=== PATIENT | female | born 1960 | race Caucasian/White ===

== ENCOUNTER 2019-09-10 18:56 | Emergency (ER) | payer OTHER ==
[~2019-09-10] VITALS: Ht 162.6 cm; Wt 77.1 kg
--- OUTSIDE RECORDS SUMMARY | ~2019-09-10 | XMS | Clinical Summary ---
Demographics + + + | Address | [address] | | | [place] [address] | + + + | Home Phone | | + + + | Preferred Language | Unknown | + + + | Marital Status | | + + + | Latter-Day Affiliation | 1038 | + + + | Race | Unknown | + + + | Ethnic Group | Unknown | + + + Author + + + | Author | [facility] | | | and Rastaana | + + + | Organization | [facility] | | | and Rastaana | + + + | Address | Unknown | + + + | Phone | Unavailable | + + + Support + + +---------+ + | Name | Relationship | Address | Phone | + + +---------+ + | LU BLEDSOE | ECON | Unknown | | + + +---------+ + Care Team Providers + +------+ + | Care Sugar Cane Grower Name | Role | Phone | + +------+ + PCP | Unavailable | + +------+ + Allergies Not on File Medications Not on file Active Problems Not on file Social History + +-------+ +--------+------+ | Tobacco Use | Types | Packs/Day | Years | Date | | | | | Used | | + +-------+ +--------+------+ | Never Assessed | | | | | + +-------+ +--------+------+ + + + | Sex Assigned at | Date Recorded | | | | + + + | Not on file | | + + + + + + + | Job Start Date | Occupation | Industry | + + + + | Not on file | Not on file | Not on file | + + + + + + + + | Travel History | Travel Start | Travel End | + + + + + + | No recent travel history available. | + + Last Filed Vital Signs Not on file Plan of Treatment + + + + + | Health Maintenance | Due Date | Last Done | Comments | + + + + + | Vaccine: | | | | | Dtap/Tdap/Td (1 - | 0 | | | | Tdap) | | | | + + + + + | Cervical Cancer | | | | | Screening (Pap) | 1 | | | + + + + + | Vaccine: Zoster (1 | | | | | of 2) | 1 | | | + + + + + | Breast Cancer | | | | | Screening | 6 | | | + + + + + | Vaccine: Influenza | | | | | (#1) | 9 | | | + + + + + Results Not on filefrom Last 3 Months"
--- OUTSIDE RECORDS SUMMARY | ~2019-09-10 | XMS | Clinical Summary ---
Demographics + + + | Address | [address] | | | [place] [address] | + + + | Home Phone | | + + + | Preferred Language | Unknown | + + + | Marital Status | Single | + + + | Yarsani Affiliation | NON | + + + | Race | White | + + + | Ethnic Group | Unknown | + + + Author + + + | Organization | Unknown | + + + | Address | Unknown | + + + | Phone | Unavailable | + + + Care Team Providers + +------+ + | Care Seam Sewer Name | Role | Phone | + +------+ + PCP | Unavailable | + +------+ + Source Comments GLORIA is fully live on both [facility] Allergies Not on File Medications Not on [...] | + + + + + | Influenza (Flu) | | | | | vaccination (#1) | 9 | | | + + + + + | Pneumococcal | Aged Out | | No longer eligible | | vaccination | | | based on patient's | | | | | age to complete this | | | | | topic | + + + + + Results Not on filefrom Last 3 Months"
--- OUTSIDE RECORDS SUMMARY | ~2019-09-10 | XMS | Clinical Summary ---
Demographics + + + | Address | [address] | | | [place] [address] | + + + | Home Phone | | + + + | Preferred Language | Unknown | + + + | Marital Status | | + + + | Anabaptist Affiliation | 1038 | + + + | Race | Unknown | + + + | Ethnic Group | Unknown | + + + Author + + + | Author | [facility] | | | and Rastaana | + + + | Organization | [facility] | | | and Rastaana | [...] Team Providers + +------+ + | Care Wallpaper Cleaner Name | Role | Phone | + [...]
--- OUTSIDE RECORDS SUMMARY | ~2019-09-10 | XMS | Encounter Summary ---
Demographics + + + | Address | [address] | | | [place] [address] | + + + | Home Phone | | + + + | Preferred Language | Unknown | + + + | Marital Status | Single | + + + | Baptist Affiliation | NON | + + + | Race | White | + + + | Ethnic Group | Unknown | + + + Author + + + | Author | [facility] | + + + | Organization | [facility] | + + + | Address | Unknown | + + + | Phone | Unavailable | + + + Care Team Providers + +------+ + | Care Bumper Operator Name | Role | Phone | + +------+ + PCP | Unavailable | + +------+ + Encounter Details +--------+ + + + + | Date | Type | Department | Care Team | Description | +--------+ + + + + | 03/17/ | Results | NON[facility] | Dillon Pan, | | | 2008 | Only | Department | MD [address] | | | | | [place] | | | | | | [address] | | | | | | [phone] | | | | | | | | +--------+ + + + + Social History + +-------+ +--------+------+ | Tobacco [...] recent travel history available. | + + documented as of this encounter Plan of Treatment Not on filedocumented as of this encounter Procedures + +--------+ + + + | Procedure Name | Priori | Date/Time | Associated Diagnosis | Comments | | | ty | | | | + +--------+ + + + | CHEST 2 VIEW [id number] | Routin | 03/17/2009 | | Results for this | | | e | 8:57 PM | | procedure are in the | | | | PDT | | results section. | + +--------+ + + + | CBC W/DIFF, REFLEX | Routin | 03/17/2009 | | Results for this | | | e | 7:52 PM | | procedure are in the | | | | PDT | | results section. | + +--------+ + + + | BASIC METABOLIC SET | Routin | 03/17/2009 | | Results for this | | (NA, K, CL, TCO2, | e | 7:52 PM | | procedure are in the | | BUN, CR, GLU, CA) | | PDT | | results section. | + +--------+ + + + | [place] ONLY | Routin | 03/17/2009 | | Results for this | | | e | 12:00 AM | | procedure are in the | | | | PDT | | results section. | + +--------+ + + + documented in this encounter Results CHEST 2 VIEW [id number] (03/17/2009 8:57 PM PDT) + + | Specimen | + + | | + + + + + | Narrative | Performed At | + + + | CHEST, TWO VIEWS: INDICATION: Heat stroke. FINDINGS: Two | [facility] | | views of the chest were obtained. The trachea is in normal | DEPARTMENT OF | | position. No mediastinal widening is seen. The cardiac size is | RADIOLOGY | | normal. The lungs are clear. The costophrenic angles are sharp. | | | Mild degenerative disease is seen in the thoracic spine. CONCLUSIONS: | | | No active disease. #[id number] | | + + + + + | Procedure Note | + + | Interface, Radiology Results - 07/17/2015 11:55 AM PDT CHEST, TWO VIEWS: | | INDICATION: Heat stroke. | | FINDINGS: Two views of the chest were obtained. The trachea is in | | normal position. No mediastinal widening is seen. The cardiac size | | is normal. The lungs are clear. The costophrenic angles are sharp. | | Mild degenerative disease is seen in the thoracic spine. | | CONCLUSIONS: | | No active disease. | | #[id number] | + + + +---------+ + + | Performing | Address | City/State/Zipcode | Phone Number | | Organization | | | | + +---------+ + + | [facility] DEPARTMENT OF | | | | | RADIOLOGY | | | | + +---------+ + + CBC W/DIFF, REFLEX (03/17/2009 7:52 PM PDT) + + + + + + | Component | Value | Ref Range | Performed | Pathologist | | | | | At | Signature | + + + + + + | WHITE BLOOD | 11.2 (H) | 4.3 - 11.0 X10 | [facility] | | | CELL COUNT | | 3/ul | A MEDICAL | | | | | | CENTER | | + + + + + + | HEMOGLOBIN | 13.4 | 12.0 - 16.0 | [facility] | | | | | g/dL | A MEDICAL | | | | | | CENTER | | + + + + + + | RED BLOOD | 4.44 | 4.2 - 5.4 X10 | [facility] | | | CELL COUNT | | 6/uL | A MEDICAL | | | | | | CENTER | | + + + + + + | HEMATOCRIT | 38.3 | 38.0 - 47.0 % | [facility] | | | | | | A MEDICAL | | | | | | CENTER | | + + + + + + | MCV | 86.4 | 82 - 100 fl | [facility] | | | | | | A MEDICAL | | | | | | CENTER | | + + + + + + | MCH | 30.2 | 28.0 - 32.0 pg | [facility] | | | | | | A MEDICAL | | | | | | CENTER | | + + + + + + | MCHC | 35.0 | 32 - 36 g/dL | [facility] | | | | | | A MEDICAL | | | | | | CENTER | | + + + + + + | RDW | 12.8 | 12 - 15 fL | [facility] | | | | | | A MEDICAL | | | | | | CENTER | | + + + + + + | PLATELET | 243 | 150 - 450 X10 3 | [facility] | | | COUNT | | | A MEDICAL | | | | | | CENTER | | + + + + + + | MPV | 9.4 | 9.0 - 12.0 fL | [facility] | | | | | | A MEDICAL | | | | | | CENTER | | + + + + + + | NEUTROPHIL | 64.8 | 40 - 80 % | [facility] | | | % | | | A MEDICAL | | | | | | CENTER | | + + + + + + | LYMPHOCYTE | 25.8 | 10 - 45 % | [facility] | | | % | | | A MEDICAL | | | | | | CENTER | | + + + + + + | EOS % | 2.3 | 0 - 5 % | [facility] | | | | | | A MEDICAL | | | | | | CENTER | | + + + + + + | BASO % | 0.4 | 0 - 1 % | [facility] | | | | | | A MEDICAL | | | | | | CENTER | | + + + + + + | MONOCYTE % | 6.7 | 2 - 10 % | [facility] | | | | | | A MEDICAL | | | | | | CENTER | | + + + + + + | BANDS % | RESPIRATORY MEDICINE PHYSICIAN | 0 - 7 % | [facility] | | | | | | A MEDICAL | | | | | | CENTER | | + + + + + + + + | Specimen | + + | | + + + + + + + | Performing | Address | City/State/Zipcode | Phone Number | | Organization | | | | + + + + + | [facility] | | | | | LABORATORY | | | | + + + + + | [facility] | [address] | [place] [address] | | | MEDICAL CENTER | Streets | | | + + + + + BASIC METABOLIC SET (NA, K, CL, TCO2, BUN, CR, GLU, CA) (03/17/2009 7:52 PM PDT) + + + + + + | Component | Value | Ref Range | Performed | Pathologist | | | | | At | Signature | + + + + + + | SODIUM, | 138 | 137 - 146 MEQ/L | [facility] | | | PLASMA | | | A MEDICAL | | | (LAB) | | | CENTER | | + + + + + + | POTASSIUM, | 3.0Comment: @ 03/17/09 | 3.5 - 5.2 MEQ/L | [facility] | | | PLASMA | 2017 Randi Mosher@RESULT | | A MEDICAL | | | (LAB) | GIVEN/HANDED TO:JADYN LEÓN | | CENTER | | | | MCKENZIE@THIS IS A | | | | | | CRITICAL VALUE AND MUST | | | | | | BE CALLED TO THE DR@OP | | | | | | OR THE NURSING MODULE | | | | | | AND THE NURSE TAKING | | | | | | CARE OF@PATIENT IF IP. | | | | | | DOCUMENT THE CALL BY | | | | | | COMPLETING THE | | | | | | F@LINE.@Avg 3.0,3.0 = | | | | | | 3.0 03/17/092016 [facility] | | | | | | | | | | + + + + + + | CO2 | 28 | 22 - 28 MEQ/L | [facility] | | | | | | A MEDICAL | | | | | | CENTER | | + + + + + + | CHLORIDE, | 99 | 98 - 106 MEQ/L | [facility] | | | PLASMA | | | A MEDICAL | | | (LAB) | | | CENTER | | + + + + + + | ANION GAP | 14.0 | 8 - 16 MEQ/L | [facility] | | | | | | A MEDICAL | | | | | | CENTER | | + + + + + + | GLUCOSE, | 98 | 70 - 105 MG/DL | [facility] | | | PLASMA | | | A MEDICAL | | | (LAB) | | | CENTER | | + + + + + + | BUN, PLASMA | 10 | 8 - 30 MG/DL | [facility] | | | (LAB) | | | A MEDICAL | | | | | | CENTER | | + + + + + + | CREATININE | 0.70 | 0.6 - 1.1 MG/DL | [facility] | | | PLASMA | | | A MEDICAL | | | (LAB) | | | CENTER | | + + + + + + | BUN/CREATIN | 14 | 6 - 20 RATIO | [facility] | | | INE RATIO | | | A MEDICAL | | | | | | CENTER | | + + + + + + | CALCIUM, | 9.0 | 8.5 - 10.8 | [facility] | | | PLASMA | | MG/DL | A MEDICAL | | | (LAB) | | | CENTER | | + + + + + + | FASTING? | UNK | HR | [facility] | | | | | | A MEDICAL | | | | | | CENTER | | + + + + + + + + | Specimen | + + | | + + + + + + + | Performing | Address | City/State/Zipcode | Phone Number | | Organization | | | | + + + + + | [facility] | | | | | LABORATORY | | | | + + + + + | [facility] | [address] | [place] [address] | | | MEDICAL CENTER | Streets | | | + + + + + [place] ONLY (03/17/2009 12:00 AM PDT) + + + + + + | Component | Value | Ref Range | Performed | Pathologist | | | | | At | Signature | + + + + + + | COLOR(UR) | YELLOW | YELLOW | [facility] | | | | | | A MEDICAL | | | | | | CENTER | | + + + + + + | APPEARANCE | CLEAR | CLEAR | [facility] | | | | | | A MEDICAL | | | | | | CENTER | | + + + + + + | SPECIFIC | < 1.005 | 1.005 - 1.030 | [facility] | | | GRAVITY | | | A MEDICAL | | | | | | CENTER | | + + + + + + | PH(UR) | 5.5 | 5.0 - 8.0 | [facility] | | | | | | A MEDICAL | | | | | | CENTER | | + + + + + + | PROTEIN, UA | NEG | NEGATIVE | [facility] | | | | | | A MEDICAL | | | | | | CENTER | | + + + + + + | GLUCOSE, UA | NEG | N | [facility] | | | | | | A MEDICAL | | | | | | CENTER | | + + + + + + | KETONES, UA | NEG | NEGATIVE | [facility] | | | | | | A MEDICAL | | | | | | CENTER | | + + + + + + | BILIRUBIN | NEG | NEGATIVE | [facility] | | | | | | A MEDICAL | | | | | | CENTER | | + + + + + + | BLOOD | TRACE | NEGATIVE | [facility] | | | | | | A MEDICAL | | | | | | CENTER | | + + + + + + | NITRITES | NEG | NEGATIVE | [facility] | | | | | | A MEDICAL | | | | | | CENTER | | + + + + + + | LEUKOCYTE | NEG | NEGATIVE | [facility] | | | ESTERASE | | | A MEDICAL | | | | | | CENTER | | + + + + + + | UROBILINOGE | NORMAL | NORMAL JOSE R | [facility] | | | N | | | A MEDICAL | | | | | | CENTER | | + + + + + + | WHITE CELLS | NEG | 0 - 2 HPF | [facility] | | | | | | A MEDICAL | | | | | | CENTER | | + + + + + + | RED CELLS | 0-3 | 0 - 3 HPF | [facility] | | | | | | A MEDICAL | | | | | | CENTER | | + + + + + + | EPITHELIAL | MOD | RARE-MOD LPF | [facility] | | | CELLS | | | A MEDICAL | | | | | | CENTER | | + + + + + + | BACTERIA | TRACE | NEG HPF | [facility] | | | | | | A MEDICAL | | | | | | CENTER | | + + + + + + | OTHER | RESPIRATORY MEDICINE PHYSICIAN | | [facility] | | | | | | A MEDICAL | | | | | | CENTER | | + + + + + + | SOURCE | CLEAN CATCH | | [facility] | | | | | | A MEDICAL | | | | | | CENTER | | + + + + + + + + | Specimen | + + | | + + + + + + + | Performing | Address | City/State/Zipcode | Phone Number | | Organization | | | | + + + + + | [facility] | | | | | LABORATORY | | | | + + + + + | [facility] | And | [place] [address] | | | MEDICAL [place] | [address] | | | + + + + + documented in this encounter Visit Diagnoses Not on filedocumented in this encounter"
--- OUTSIDE RECORDS SUMMARY | ~2019-09-10 | XMS | Encounter Summary ---
Demographics + + + | Address | [address] | | | [place] [address] | + + + | Home Phone | | + + + | Preferred Language | Unknown | + + + | Marital Status | Single | + + + | Amish Affiliation | NON | + + + | Race | White | + + + | Ethnic Group | Unknown | + + + Author + + + | Author | [facility] | + + + | Organization | [facility] | + + + | Address | Unknown | + + + | Phone | Unavailable | + + + Care Team Providers + +------+ + | Care Landscape Gardener Name | Role | Phone | + [...] [place] | | | | | | [address] | | | | | | [phone] | | | | | | | [...] + + + | CHEST 2 VIEW [id number] | Routin | 03/17/2009 | | Results [...] in this encounter Results CHEST 2 VIEW [id number] (03/17/2009 8:57 PM PDT) + + | [...] CONCLUSIONS: | | | No active disease. #[id number] | | + + + + + [...] | | No active disease. | | #[id number] | + + + +---------+ + + [...] + + + | BANDS % | MEDICAL RECORDS SUPERVISOR | 0 - 7 % | [facility] [...] | [facility] | [address] | [place] [address] | | | MEDICAL CENTER | Streets [...] | | | | | 3.0 03/17/092016 [facility] | | | | | | | | | | + + + + + + | CO2 | 28 | 22 - 28 MEQ/L | [facility] | | | | | | A MEDICAL | | | | | | CENTER | | + + + + + + | CHLORIDE, | 99 | 98 - 106 MEQ/L | [facility] | | | PLASMA | | | A MEDICAL | | | (LAB) | | | CENTER | | + + + + + + | ANION GAP | 14.0 | 8 - 16 MEQ/L | [facility] | | | | | | A MEDICAL | | | | | | CENTER | | + + + + + + | GLUCOSE, | 98 | 70 - 105 MG/DL | [facility] | | | PLASMA | | | A MEDICAL | | | (LAB) | | | CENTER | | + + + + + + | BUN, PLASMA | 10 | 8 - 30 MG/DL | [facility] | | | (LAB) | | | A MEDICAL | | | | | | CENTER | | + + + + + + | CREATININE | 0.70 | 0.6 - 1.1 MG/DL | [facility] | | | PLASMA | | | [...] | 9.0 | 8.5 - 10.8 | [facility] | | | PLASMA | | MG/DL | A MEDICAL | | | (LAB) | | | CENTER | | + + + + + + | FASTING? | UNK | HR | [facility] | | | [...] + + | [facility] | And | [place] [address] | | | MEDICAL CENTER | Streets [...] + + + + | OTHER | MEDICAL RECORDS SUPERVISOR | | [facility] | | | | [...] | + + + + + | [facility] | And | [place] [address] | | | [place] | [address] | | | + + + + + documented in this encounter Visit Diagnoses Not on filedocumented in this encounter"
--- OUTSIDE RECORDS SUMMARY | ~2019-09-10 | XMS | Clinical Summary ---
Demographics + + + | Address | [address] | | | [place] [address] | + + + | Home Phone | | + + + | Preferred Language | Unknown | + + + | Marital Status | Single | + + + | Orthodoxy Affiliation | NON | + + + | Race | White | + + + | Ethnic Group | Unknown | + + + Author + + + | Organization | Unknown | + + + | Address | Unknown | + + + | Phone | Unavailable | + + + Care Team Providers + +------+ + | Care Cloth Washer Back Tender Name | Role | Phone | + +------+ + PCP | Unavailable | + +------+ + Source Comments GLORIA is fully live on both [facility] Allergies Not on File Medications Not on [...]
[~2019-09-10 18:56] MED LIST: ACETAMINOPHEN500 MG PO; ALBUTEROL2.5 MG/3 M INH; ATORVASTATIN CA10 MG PO; AZITHROMYCIN250 MG PO; CHANTIX1 MG PO; METFORMIN HCL500 MG PO; NORCO 5-325 TA1 EACH PO; PREDNISONE20 MG PO; PROAIR RESPICL90 MCG IH; PROTONIX40 MG PO; TRAMADOL HCL50 MG PO; VENTOLIN HFA18 GM INH; ZOFRAN ODT4 MG PO
--- OUTSIDE RECORDS SUMMARY | 2019-09-10 18:58 | XMS ---
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 Ron VISIT COUNT (12 MO.) [address] TOTAL 3 NOTE: Visits indicate total known visits. ED/UCC VISIT TRACKING (12 MO.) 09/10/2019 18:56 [place] [place] TYPE: Emergency COMPLAINT: - CHEST PAIN 08/21/2019 09:57 [facility] DIAGNOSES: - Dorsalgia, unspecified - kidney pain - Other specified disorders of nose and nasal sinuses 07/02/2019 13:44 [place] TYPE: Emergency DIAGNOSES: - Sciatica, right side - Glycosuria - LOWER BACK / RIGHT LEG PAIN INPATIENT VISIT TRACKING (12 MO.) No inpatient visits to display in this time frame [email or web address]
[2019-09-10] MEDS ORDERED: DOXYCYCLINE HY100 MG PO (20:24)
--- NOTE | 2019-09-11 19:13 | EKG ---
[facility] [address] [place], [place] [address] Signed Normal sinus rhythm Normal ECG No previous ECGs available Confirmed by DENNIS HAM MD ([id number]) on 09/11/2019 7:13:18 PM Electronically Signed By: DENNIS HAM MD 09/11/19 1913 PATIENT NAME: SHERRY ARROYO Will Electrocardiogram DATE OF : 62 PHYSICIAN: DENNIS HAM MD REPORT #: [id number] REPORT IS CONFIDENTIAL AND NOT TO BE RELEASED WITHOUT AUTHORIZATION
== END 2019-09-10 20:40 | disposition home or self-care (01) ==
LOC: ED 18:56
DX: J20.9 Acute bronchitis, unspecified (principal); E11.9 Type 2 diabetes mellitus without complications; F17.200 Nicotine dependence, unspecified, uncomplicated; Z88.1 Allergy status to other antibiotic agents; Z88.5 Allergy status to narcotic agent; Z88.6 Allergy status to analgesic agent
CPT/HCPCS: 71045; 80053; 83735; 84484; 85025; 85379; 93005; 93010; 99285-25

== ENCOUNTER 2022-04-14 22:28 | Emergency (ER) | payer OTHER ==
[~2022-04-14] VITALS: Ht 162.6 cm; Wt 73.9 kg
[~2022-04-14 22:28] MED LIST changes: +DOXYCYCLINE HY100 MG PO
[2022-04-14] MEDS ORDERED: CYCLOBENZAPRINE5 MG PO (23:53)
[2022-04-14] MEDS ORDERED: IPRAT-ALBUT 0.5-3 ML INH (23:53)
[2022-04-14] MEDS ORDERED: LISINOPRIL5 MG PO (23:53)
[2022-04-14] MEDS ORDERED: ROSUVASTATIN CAL5 MG PO (23:54)
[2022-04-14] MEDS ORDERED: HUMALOG100 UNITS/ IV (23:54)
[2022-04-15] MEDS ORDERED: LEVOFLOXACIN500 MG PO (03:10)
[2022-04-15] MEDS ORDERED: HYDROCODON-ACE1 EA10 PO (03:10)
[2022-04-15] MEDS ORDERED: CIPROFLOX-DEXA7.5 ML OTIC (03:10)
[2022-04-15] MEDS ORDERED: STOOL SOFTENER240 MG PO (03:10)
[2022-04-15] MEDS ORDERED: ONDANSETRON ODT4 MG PO (03:14)
== END 2022-04-15 04:40 | disposition home or self-care (01) ==
LOC: ED 22:28
DX: H60.92 Unspecified otitis externa, left ear (principal); E10.65 Type 1 diabetes mellitus with hyperglycemia; E78.00 Pure hypercholesterolemia, unspecified; J44.9 Chronic obstructive pulmonary disease, unspecified; J45.909 Unspecified asthma, uncomplicated; F17.200 Nicotine dependence, unspecified, uncomplicated; Z88.1 Allergy status to other antibiotic agents; Z88.5 Allergy status to narcotic agent; Z88.8 Allergy status to other drugs, medicaments and biological substances; Z79.899 Other long term (current) drug therapy; Z79.4 Long term (current) use of insulin
CPT/HCPCS: 36415; 70487; 80048; 85025; 85651; 86140; 99283-25; A9270; J1956; J2405; Q9967

== ENCOUNTER 2022-07-18 22:43 | Emergency (ER) | payer OTHER ==
[~2022-07-18] VITALS: Ht 162.6 cm; Wt 78.5 kg
[~2022-07-18 22:43] MED LIST changes: +CIPROFLOX-DEXA7.5 ML OTIC; +CYCLOBENZAPRINE5 MG PO; +HUMALOG100 UNITS/ IV; +HYDROCODON-ACE1 EA10 PO; +IPRAT-ALBUT 0.5-3 ML INH; +LEVOFLOXACIN500 MG PO; +LISINOPRIL5 MG PO; +ONDANSETRON ODT4 MG PO; +ROSUVASTATIN CAL5 MG PO; +STOOL SOFTENER240 MG PO
[2022-07-19] MEDS ORDERED: NAPROSYN500 MG PO (00:26)
== END 2022-07-19 00:50 | disposition home or self-care (01) ==
LOC: ED 22:43
DX: S46.911A Strain of unspecified muscle, fascia and tendon at shoulder and upper arm level, right arm, initial encounter (principal); W22.8XXA Striking against or struck by other objects, initial encounter; E11.9 Type 2 diabetes mellitus without complications; J45.909 Unspecified asthma, uncomplicated; F17.200 Nicotine dependence, unspecified, uncomplicated; Z88.1 Allergy status to other antibiotic agents; Z88.8 Allergy status to other drugs, medicaments and biological substances; Z88.5 Allergy status to narcotic agent; Z79.899 Other long term (current) drug therapy
CPT/HCPCS: 73030; 99283-25

== ENCOUNTER 2023-12-14 10:00 | Emergency (ER) | payer OTHER ==
[~2023-12-14] VITALS: Ht 162.6 cm; Wt 72.9 kg
[~2023-12-14 10:00] MED LIST changes: +NAPROSYN500 MG PO
--- OUTSIDE RECORDS SUMMARY | 2023-12-14 10:08 | XMS ---
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 02/21/2023 12:17 - Patient eloped with IV in place. - Patient eloped before treatment completed. - Patient with suicidal and/or homicidal ideations eloped. Details: Patient LWOBS Elopement at [facility] 07/17/2022 10:41 - Patient eloped with IV in place. - Patient eloped before treatment completed. - Patient with suicidal and/or homicidal ideations eloped. Details: PATIENT LWBS CRITERIA MET - [facility] - 2 Visits in 30 Days CARE PROVIDERS There are no care providers on record at this time. Bhargav has no Care Guidelines for this patient. Ron VISIT COUNT (12 MO.) 3 [facility] 2 [facility]. TOTAL 5 NOTE: Visits indicate total known visits. ED/UCC VISIT TRACKING (12 MO.) 12/14/2023 10:01 [facility] [place] TYPE: Emergency COMPLAINT: - R FLANK PAIN 11/28/2023 15:57 [facility] [place] TYPE: Emergency COMPLAINT: - R KIDNEY PAIN DIAGNOSES: - R KIDNEY PAIN 11/25/2023 18:24 [facility] [place] TYPE: Emergency COMPLAINT: - Back Pain DIAGNOSES: - Back Pain 02/21/2023 17:37 [facility] [place] TYPE: Emergency DIAGNOSES: - Noninfective gastroenteritis and colitis, unspecified - ABD PAIN 02/21/2023 12:17 [facility] [place] TYPE: Emergency COMPLAINT: - L SIDE ABD PAIN, VOMITING INPATIENT VISIT TRACKING (12 MO.) No inpatient visits to display in this time frame [email or web address]
[2023-12-14 11:00] LABS: BILIRUBIN, URINE NEGATIVE (negative); BLOOD/HGB, URINE NEGATIVE (Negative); KETONE, URINE NEGATIVE (Negative); LEUK ESTERASE, URINE NEGATIVE (negative); NITRITE, URINE NEGATIVE (negative); PH, URINE 5.5 (5-7)
[2023-12-14 11:26] LABS: BASOPHILS 0.7 % (0-2); EOSINOPHILS 1.2 % (0-6); LYMPHOCYTES 17.6 % (24-44); MCH 30.4 (27-36); MCV 89.5 fl (81-99); MONOCYTES 5.7 % (0-12); NEUTROPHILS 74.8 % (39-80); PLATELET COUNT 274 K/uL (140-440); RBC 4.92 M/ul (4.3-5.7); RDW 12.9 (10.5-15.0)
[2023-12-14 11:48] LABS: ALBUMIN 3.2 g/dL (3.4-5.0); ALBUMIN/GLOBULIN RATIO 0.8 (1.1-2.4); ANION GAP 14.6 (7-21); BILIRUBIN, TOTAL 0.4 ng/dL (0.2-1.0); BUN/CREATININE RATIO 13.69 (6.0-28.6); CALCIUM 8.8 mg/dL (8.5-10.1); CREATININE, SERUM 0.73 mg/dL (0.55-1.02); POTASSIUM 4.6 mmol/L (3.5-5.1); PROTEIN, TOTAL 7.2 g/dL (6.4-8.2)
[2023-12-14] MEDS ORDERED: HYDROCODON-ACE1 EA11 PO (12:53)
[2023-12-14] MEDS ORDERED: LIDODERM1 EACH TOP (12:53)
[2023-12-14 13:03] VITALS: BP 118/74
== END 2023-12-14 13:03 | disposition home or self-care (01) ==
LOC: ED 10:00
PROVIDERS: Emergency Medicine
DX: R10.9 Unspecified abdominal pain (principal); E78.00 Pure hypercholesterolemia, unspecified; J44.89 Other specified chronic obstructive pulmonary disease; E10.9 Type 1 diabetes mellitus without complications; F17.200 Nicotine dependence, unspecified, uncomplicated; Z88.8 Allergy status to other drugs, medicaments and biological substances; Z88.0 Allergy status to penicillin; Z88.1 Allergy status to other antibiotic agents; Z88.5 Allergy status to narcotic agent; Z79.4 Long term (current) use of insulin
CPT/HCPCS: 36415; 71046; 80053; 81003; 83690; 85025; A9270; J1885